=== PATIENT | male | born 1960 | race American Indian/Alaskan Native ===

== ENCOUNTER 2016-08-21 10:26 | Emergency (ER) | payer OTHER ==
[2016-08-21 11:13] LABS: Hematocrit 38.5 % (35.5-45.6); Hemoglobin 12.6 gm/dl (11.8-15.2); Mean Corpuscular HGB Conc 33 % (32-34); Mean Corpuscular Hemoglobin 29 pg (28-32); Mean Corpuscular Volume 90 fl (84-94); Platelet Count 276 K/mm3 (140-440); Red Blood Count 4.29 M/mm3 (3.65-5.03); Red Cell Distribution Width 14.7 % (13.2-15.2); White Blood Count 4.8 K/mm3 (4.5-11.0)
[2016-08-21 11:16] LABS: Partial Thromboplastin Time 27.6 Sec. (24.2-36.6)
[2016-08-21] MEDS ORDERED: AFRIN ONE (14:06)
--- NOTE | 2016-08-21 14:20 | Emergency Department Report ---
HPI - General Chief Complaint: Nosebleed Time Seen by Provider: 08/21/16 14:06 - HPI HPI: Room 6 The patient is a 56-year-old male presenting with a chief complaint of epistaxis. The patient states that yesterday he has had intermittent epistaxis. Patient states the bleeding originally initiated from the right naris but now has become bilateral. Patient denies any preceding trauma. Patient states she has been compliant with his blood pressure medication Location: Nose Duration: Intermittent since yesterday Quality: Bleeding Severity: Moderate Modifying factors: [see above] Context: [see above] Mode of transportation: unknown ED Past Medical Hx - Past Medical History Previous Medical History?: Yes Hx Hypertension: Yes Hx COPD: Yes - Surgical History Past Surgical History?: No - Family History Family history: no significant - Social History Smoking Status: Never Smoker Substance Use Type: Alcohol (occasional), Marijuana - Medications Home Medications: Home Medications Medication Instructions Recorded Confirmed Last Taken Type ALBUTEROL Inhaler [ProAir HFA 2 puff IH QID PRN 01/15/13 11/15/13 01/12/13 History Inhaler] Amlodipine Besylate 10 mg PO DAILY 01/15/13 11/15/13 11/14/13 History Atenolol 50 mg PO BID 01/15/13 11/15/13 11/14/13 History Diltiazem [Cardizem] 30 mg PO Q8H 01/15/13 11/15/13 11/15/13 History HYDROcodone/APAP 7.5-325 [Hardin 1 each PO Q6HR PRN #14 tablet 11/15/13 Unknown Rx 7.5-325 mg TAB] Amoxicillin/K Clav Tab [Augmentin 1 each PO Q12HR #14 tablet 08/21/16 Unknown Rx 500 MG TAB] ED Review of Systems ROS: Stated complaint: RT SIDE NOSE BLEED Other details as noted in HPI Comment: All other systems reviewed and negative Constitutional: denies: chills, fever Eyes: denies: eye pain, eye discharge, vision change ENT: epistaxis Respiratory: denies: cough, shortness of breath, wheezing Endocrine: no symptoms reported Gastrointestinal: denies: abdominal pain, nausea, diarrhea Genitourinary: denies: urgency, dysuria Musculoskeletal: denies: back pain, joint swelling, arthralgia Skin: denies: rash, lesions Neurological: denies: headache, weakness, paresthesias Psychiatric: denies: anxiety, depression Hematological/Lymphatic: denies: easy bleeding, easy bruising Physical Exam - Physical Exam Vital Signs: Vital Signs 08/21/16 10:46 Temperature 98.0 F Pulse Rate 88 Respiratory 18 Rate Blood Pressure 144/90 O2 Sat by Pulse 100 Oximetry Physical Exam: GENERAL: The patient is well-developed well-nourished male lying on stretcher with active bleeding from bilateral nares. [] HEENT: Normocephalic. Atraumatic. Extraocular motions are intact. Patient has moist mucous membranes. NECK: Supple. Trachea midline CHEST/LUNGS: There is no respiratory distress noted. HEART/CARDIOVASCULAR: Regular. There is no tachycardia. ABDOMEN: There is no abdominal distention. SKIN: There is no rash. There is no edema. There is no diaphoresis. NEURO: The patient is awake, alert, and oriented. The patient is cooperative. The patient has normal speech MUSCULOSKELETAL: There is no evidence of acute injury. ED Course Vital Signs 08/21/16 10:46 Temperature 98.0 F Pulse Rate 88 Respiratory 18 Rate Blood Pressure 144/90 O2 Sat by Pulse 100 Oximetry - Reevaluation(s) Reevaluation #1: 08/21/16 14:16 Afrin-soaked 2 x 2 gauze placed in bilateral nares with tongue pressure clamp applied 08/21/16 16:04 Second anterior packing left in place. No active bleeding seen. No blood in the oropharynx. Will start patient on antibiotic ED Medical Decision Making - Lab Data Result diagrams: 08/21/16 10:58 Laboratory Tests 08/21/16 08/21/16 10:58 10:58 WBC 4.8 RBC 4.29 Hgb 12.6 Hct 38.5 MCV 90 MCH 29 MCHC 33 RDW 14.7 Plt Count 276 PT 13.1 INR 1.00 APTT 27.6 - Differential Diagnosis epistaxis, hypertension Critical care attestation.: If time is entered above; I have spent that time in minutes in the direct care of this critically ill patient, excluding procedure time. ED Disposition Clinical Impression: Epistaxis, Hypertension Disposition: DISCHARGED TO HOME OR SELFCARE Is pt being admited?: No Does the pt Need Aspirin: No Condition: Stable Instructions: Hypertension (ED) Additional Instructions: Return to the emergency department immediately should you develop worsening symptoms, fever, inability to tolerate food or liquid or any other concerns. Prescriptions: Amoxicillin/K Clav Tab [Augmentin 500 MG TAB] 1 each PO Q12HR #14 tablet Referrals: ANEESH ROSE MD [Staff Physician] - [facility] (Dr. Rose is an ear nose and throat doctor (passport support manager). Please follow up with her for further evaluation) Time of Disposition: 16:46
[2016-08-21] MEDS ORDERED: CATAPRES PO ONE (15:00)
[2016-08-21] MEDS ORDERED: NORMODYNE IV ONE (16:03)
[2016-08-21 17:57] VITALS: BP 153/111
[2016-08-21] MEDS ORDERED: NORCO 5/325 PO ONE (17:59)
== END 2016-08-21 19:04 | disposition home or self-care (01) ==
LOC: ED 10:26
DX: R04.0 Epistaxis (principal); I10 Essential (primary) hypertension; J44.9 Chronic obstructive pulmonary disease, unspecified; F12.10 Cannabis abuse, uncomplicated
CPT/HCPCS: 36415; 85027; 85610; 85730; 93005; 93010; 96374; 99283